=== PATIENT | female | born 1970 | race American Indian/Alaskan Native ===

== ENCOUNTER 2017-11-03 23:24 | Emergency (ER) | payer SELFPAY ==
[2017-11-04 00:07] VITALS: BP 106/67
[2017-11-04 02:10] LABS: Bacteria,Urine 2+ /HPF (Negative); Bilirubin,Urine NEG (Negative); Blood,Urine SM (Negative); Color,Urine Yellow (Yellow); Hyaline Casts,Urine 1 /LPF; Mucus,Urine FEW /HPF; Protein,Urine <15 mg/dL mg/dL (Negative)
[2017-11-04 02:11] LABS: WBC,Urine > 182.0 /HPF (0.0-6.0)
[2017-11-04 02:12] LABS: HCG Qualitative,Urine Negative (Negative)
[2017-11-04] MEDS ORDERED: MOTRIN PO ONE (04:21)
[2017-11-04] MEDS ORDERED: MACROBID PO ONE (04:21)
--- NOTE | 2017-11-04 04:25 | Emergency Department Report ---
ED Female HPI - General Chief complaint: Urogenital-Female Stated complaint: VAGINAL DISCHARGE AFTER ANTIBIOTICS Time Seen by Provider: 11/04/17 04:20 Source: patient Mode of arrival: Ambulatory Limitations: No Limitations - History of Present Illness Initial comments: 47-year-old -[place] Citizen female comes to the emergency room complaining of vaginal itchiness with creamy white vaginal discharge 3 days. Patient reports that she was recently treated for right axillary ball with Bactrim and now is having vaginal discharge. Patient also reports suprapubic pain and urinary urgency urinary frequency and dysuria. Patient reports that she is not sexually active she reports that she's been itching in her vaginal area and has been scratching. Patient denies any fever chills nausea vomiting. She does report having not allergy to doxycycline currently she is taking Bactrim and tramadol. MD Complaint: dysuria, pelvic pain -: days(s) (3) Location: suprapubic Radiation: L flank Severity: moderate Quality: cramping, dull Consistency: intermittent Improves with: none Are you Now?: No - Related Data Previous Rx's Medication Instructions Recorded Last Taken Type Cyclobenzaprine [Flexeril 10mg] 10 mg PO BID PRN #10 tablet 02/09/14 03/31/14 23 :00 Rx Naproxen [Naprosyn] 375 mg PO BID #20 tablet 02/09/14 03/31/14 23:00 Rx traMADol [Ultram 50 MG tab] 50 mg PO Q6HR PRN #20 tablet 02/09/14 03/31/14 23: 00 Rx medroxyPROGESTERone ACETATE 5 mg PO QDAY #5 tablet 04/01/14 Unknown Rx [Provera] traMADol [Ultram 50 MG tab] 50 mg PO Q6HR PRN #20 tablet 04/01/14 Unknown Rx Fluconazole [Diflucan] 150 mg PO QDAY #2 tablet 11/04/17 Unknown Rx Nitrofurantoin Hoke/M-Cryst 100 mg PO Q12HR #20 capsule 11/04/17 Unknown Rx [Macrobid CAP] Allergies Allergy/AdvReac Type Severity Reaction Status Date / Time doxycycline AdvReac Nausea Verified 04/01/14 13:30 ED Review of Systems ROS: Stated complaint: VAGINAL DISCHARGE AFTER ANTIBIOTICS Other details as noted in HPI Constitutional: denies: chills, fever Eyes: denies: eye pain, eye discharge, vision change ENT: denies: ear pain, throat pain Respiratory: denies: cough, shortness of breath, wheezing Cardiovascular: denies: chest pain, palpitations Endocrine: no symptoms reported Gastrointestinal: abdominal pain (suprapubic) Genitourinary: urgency, dysuria, frequency, discharge Neurological: denies: headache, weakness, paresthesias Psychiatric: denies: anxiety, depression Hematological/Lymphatic: denies: easy bleeding, easy bruising ED Past Medical Hx - Past Medical History Previous Medical History?: No - Surgical History Additional Surgical History: tubil ligation in 1990, left wrist cyst in 2006 - Social History Smoking Status: Never Smoker Substance Use Type: None - Medications Home Medications: Home Medications Medication Instructions Recorded Confirmed Last Taken Type Cyclobenzaprine [Flexeril 10mg] 10 mg PO BID PRN #10 tablet 02/09/14 04/01/14 23:00 Rx Naproxen [Naprosyn] 375 mg PO BID #20 tablet 02/09/14 04/01/14 03/31/14 23:00 Rx traMADol [Ultram 50 MG tab] 50 mg PO Q6HR PRN #20 tablet 02/09/14 04/01/1403/31 23:00 Rx medroxyPROGESTERone ACETATE 5 mg PO QDAY #5 tablet 04/01/14 Unknown Rx [Provera] traMADol [Ultram 50 MG tab] 50 mg PO Q6HR PRN #20 tablet 04/01/14 Unknown Rx Fluconazole [Diflucan] 150 mg PO QDAY #2 tablet 11/04/17 Unknown Rx Nitrofurantoin Hoke/M-Cryst 100 mg PO Q12HR #20 capsule 11/04/17 Unknown Rx [Macrobid CAP] ED Physical Exam - General Limitations: No Limitations General appearance: alert, in no apparent distress - Head Head exam: Present: atraumatic, normocephalic - Eye Eye exam: Present: normal appearance, EOMI - ENT ENT exam: Present: mucous membranes moist - Respiratory Respiratory exam: Present: normal lung sounds bilaterally. Absent: respiratory distress - Cardiovascular Cardiovascular Exam: Present: regular rate, normal rhythm. Absent: systolic murmur, diastolic murmur, rubs, gallop - GI/Abdominal GI/Abdominal exam: Present: soft, tenderness (suprapubic). Absent: distended, guarding, rebound - Extremities Exam Extremities exam: Present: normal inspection - Back Exam Back exam: Present: normal inspection - Neurological Exam Neurological exam: Present: alert, oriented X3 - Psychiatric Psychiatric exam: Present: normal affect, normal mood - Skin Skin exam: Present: warm, dry, intact, normal color. Absent: rash ED Course Vital Signs 11/03/17 11/04/17 23:59 01:15 Temperature 98.4 F 98.4 F Pulse Rate 88 88 Respiratory 18 16 Rate Blood Pressure 106/67 106/67 O2 Sat by Pulse 100 100 Oximetry ED Medical Decision Making - Medical Decision Making Patient has been evaluated but this provider fast track. Discussed the patient she appears to have a urinary tract infection. Discussed the patient I'll place her Macrobid give her a dose of ibuprofen while here. Discussed with patient to increase her water intake by 1 L. Critical care attestation.: If time is entered above; I have spent that time in minutes in the direct care of this critically ill patient, excluding procedure time. ED Disposition Clinical Impression: Candidiasis of female genitalia UTI (urinary tract infection) Qualifiers: Urinary tract infection type: acute cystitis Hematuria presence: with hematuria Qualified Code(s): N30.01 - Acute cystitis with hematuria Disposition: TO HOME OR SELFCARE Is pt being admited?: No Does the pt Need Aspirin: No Condition: Stable Instructions: Urinary Tract Infection in Women (ED), Vulvovaginal Candidiasis ( ED) Additional Instructions: Complete antibiotics as prescribed. Continue with Tylenol or Motrin over-the- counter for pain management. If her symptoms persist or gets worse please follow up with her primary care provider. Prescriptions: Fluconazole [Diflucan] 150 mg PO QDAY #2 tablet Nitrofurantoin Hoke/M-Cryst [Macrobid CAP] 100 mg PO Q12HR #20 capsule Referrals: PRIMARY CARE, [Primary Care Provider] - 3-5 Days Forms: Work/School Release Form(ED)
== END 2017-11-04 04:45 | disposition home or self-care (01) ==
LOC: ED 23:24
DX: N30.01 Acute cystitis with hematuria (principal); B37.3 Candidiasis of vulva and vagina; Z98.51 Tubal ligation status; Z88.1 Allergy status to other antibiotic agents
CPT/HCPCS: 81001; 81025; 99283